=== PATIENT | female | born 1955 | race Caucasian/White ===

== ENCOUNTER 2023-03-24 07:39 | Day surgery (SDC) | payer OTHER ==
[2023-03-24] VITALS (8 sets, daily range): BP systolic 102–116; BP diastolic 73–85
[~2023-03-24] VITALS: Ht 172.7 cm; Wt 102.0 kg
[~2023-03-24 07:39] MED LIST: ALBU90OI INH; CEPH500 PO; DOXY100 PO; Estrace Vagin42.5 GM VAG; FAMO40 PO; KRILL OIL500 MG PO; LEVOTHYROXINE150 MC9 PO; LIOT5 PO; MEDROL; METO100ER PO; MONT10T PO; MULVITA PO; ZYRTEC10 M2 PO; Zofran4 MG PO
--- NOTE | 2023-03-24 08:15 | NUR ---
Ambulatory in Day Surgery History, Chart, Medications and Allergies reviewed before start of procedure.Lungs clear T/O to Auscultation. Patient confirms NPO status and agrees with scheduled surgery. Patient reports completing Chlorhexadine shower X2 prior to admission to hospital.Surgical site prepped with 2% Chlorhexidine cloth wipe. Patient States Post-Procedure ride home has been arranged.
--- NOTE | 2023-03-24 09:19 | NUR ---
03/24/23 0919 Noe Rahman I CEFAZOLIN 2 GRAM GIVEN AT 0855.
--- NOTE | 2023-03-24 10:42 | NUR ---
DISCHARGE NOTE PT A&OX4, BREATHING RA, VSS, TOLERATING PO FLUIDS AND FOOD. PT INCISION WAS NUMB WHEN ARRIVED BUT BEGAN HAVING SOME PAIN PRIOR TO DC, PAIN PILL GIVEN PER MD ORDERS. Patient up to Ambulate independently. Gait steady. PT VOIDED PRIOR TO DISCHARGE. Discharge instructions reviewed with patient. Patient verbalizes understanding. Copy given to patient to take home. Dressing to procedure site clean, dry, intact with no visible drainage, swelling, erythema or bruising noted. Discharged via wheelchair to private car for ride home.
== END 2023-03-24 10:40 | disposition home or self-care (01) ==
LOC: ORSCMMR 07:39 → ORD 09:00 → ORSCMMR 09:00
PROVIDERS: Surgery
PROC: 0JB70ZX Excision of Back Subcutaneous Tissue and Fascia, Open Approach, Diagnostic (ICD-10-PCS; principal; 2023-03-24 09:00)
DX: L72.0 Epidermal cyst (principal); I10 Essential (primary) hypertension; Z95.0 Presence of cardiac pacemaker; G47.33 Obstructive sleep apnea (adult) (pediatric); E03.9 Hypothyroidism, unspecified; K21.9 Gastro-esophageal reflux disease without esophagitis; Z79.899 Other long term (current) drug therapy; E66.9 Obesity, unspecified; Z68.34 Body mass index [BMI] 34.0-34.9, adult
CPT/HCPCS: 88304; A9270; J0690; J2250; J2704; J3010; J7120

== ENCOUNTER → 2023-08-29 | Outpatient (CLI) | payer MEDICARE, OTHER ==
[2023-08-29 15:10] LABS: CHOL/HDL RATIO 3.4; Cholesterol 211 mg/dL (50-200); Free Thyroxine 0.97 ng/dL (0.70-1.60); HDL Cholesterol 62 mg/dL (>39); LDL/HDL RATIO 2.1; Low Density Lipoprotein Chol 128 mg/dL (0-110); Triglycerides 104 mg/dL (30-160); Very Low Density Lipoprot Chol 20 mg/dL (6-32)
[2023-08-31 06:12] LABS: A/G RATIO 1.8 (1.2-2.2); ALKALINE PHOSPHATASE, S 41 IU/L (44-121); ALT (SGPT) 9 IU/L (0-32); AST (SGOT) 14 IU/L (0-40); BILIRUBIN, TOTAL <0.2 mg/dL (0.0-1.2); BUN 16 mg/dL (8-27); BUN/CREATININE RATIO 24 (12-28); CALCIUM, SERUM 9.5 mg/dL (8.7-10.3); CARBON DIOXIDE, TOTAL 26 mmol/L (20-29); CHLORIDE, SERUM 105 mmol/L (96-106); CREATININE, SERUM 0.67 mg/dL (0.57-1.00); GLOBULIN, TOTAL 2.3 g/dL (1.5-4.5); GLUCOSE, SERUM 88 mg/dL (70-99); POTASSIUM, SERUM 4.6 mmol/L (3.5-5.2); PROTEIN, TOTAL, SERUM 6.4 g/dL (6.0-8.5); SODIUM, SERUM 142 mmol/L (134-144)
== END ==
LOC: LAB 09:17 → LAB SHORT 09:17
PROVIDERS: Internal Medicine
DX: E03.9 Hypothyroidism, unspecified (principal); E78.00 Pure hypercholesterolemia, unspecified
CPT/HCPCS: 80053; 80061; 84439; 84443

== ENCOUNTER 2023-09-15 12:59 | Day surgery (SDC) | payer OTHER ==
[~2023-09-15] VITALS: Ht 172.7 cm; Wt 93.4 kg
[2023-09-15] MEDS ORDERED: LIOT5 (13:30)
[2023-09-15 15:33] VITALS: BP 102/72
== END 2023-09-15 15:35 | disposition home or self-care (01) ==
LOC: ORSCSDS 12:59
PROVIDERS: Internal Medicine Gastroenterology
PROC: 0DJ08ZZ Inspection of Upper Intestinal Tract, Via Natural or Artificial Opening Endoscopic (ICD-10-PCS; principal; 2023-09-15 14:00)
PROC: 0DBL8ZX Excision of Transverse Colon, Via Natural or Artificial Opening Endoscopic, Diagnostic (ICD-10-PCS; principal; 2023-09-15 14:00)
DX: K21.9 Gastro-esophageal reflux disease without esophagitis (principal); D12.3 Benign neoplasm of transverse colon; K64.4 Residual hemorrhoidal skin tags; K64.8 Other hemorrhoids; K59.09 Other constipation; Z86.010 Personal history of colon polyps; E05.00 Thyrotoxicosis with diffuse goiter without thyrotoxic crisis or storm; G47.33 Obstructive sleep apnea (adult) (pediatric); J45.909 Unspecified asthma, uncomplicated; I10 Essential (primary) hypertension; Z95.0 Presence of cardiac pacemaker; Z79.899 Other long term (current) drug therapy
CPT/HCPCS: 88305; J2704; J7120